=== PATIENT | female | born 1985 | race African-American/Black ===

== ENCOUNTER 2022-11-23 14:26 | Emergency (ER) | payer BC, MEDICAID ==
[2022-11-23] MEDS ORDERED: Sodium Chloride 0.9% 10 ML Syringe FLUSH PRN (14:29)
[2022-11-23] MEDS: Sodium Chloride 0.9% 1,000 ML IV ONE (14:55)
[2022-11-23] MEDS: Ondansetron 4 MG/2 ML SDV IVPUSH ONE (14:56)
[2022-11-23 14:58] LABS: ANION GAP 13.9 mmol/L (5-15); CHLORIDE,CL 106 mmol/L (98-107); SODIUM,NA 142 mmol/L (136-145)
[2022-11-23 15:06] LABS: ESTIMATED GFR 117 mL/min (>=60)
== END 2022-11-23 16:00 | disposition home or self-care (01) ==
LOC: KA.ED 14:26
DX: J11.2 Influenza due to unidentified influenza virus with gastrointestinal manifestations (principal)
CPT/HCPCS: 80053; 81001; 81025; 83690; 85025; 87804; 96361; 96374; 99283; 99284-25; J2405; J7030

== ENCOUNTER 2023-07-28 09:21 | Emergency (ER) | payer MEDICAID ==
[2023-07-28 09:58] LABS: BASOPHILS ABSOLUTE AUTO 0.02 10^3/uL (0.00-0.10); BASOPHILS PERCENT AUTO 0.3 % (0.0-1.0); EOSINOPHILS ABSOLUTE AUTO 0.13 10^3/uL (0.10-0.30); EOSINOPHILS PERCENT AUTO 2.1 % (1.0-3.0); HEMATOCRIT 29.9 % (37.0-47.0); HEMOGLOBIN 8.8 g/dL (12.0-16.0); IMMATURE GRAN ABSOLUTE AUTO 0.01 10^3/uL (0.00-0.50); IMMATURE GRAN PERCENT AUTO 0.2 % (0.0-5.0); LYMPHOCYTES ABSOLUTE AUTO 2.05 10^3/uL (1.00-4.00); LYMPHOCYTES PERCENT AUTO 33.7 % (20.0-40.0); MEAN CORPUSCULAR HEMOGLOBIN 22.6 pg (27.0-31.0); MEAN CORPUSCULAR HGB CONC 29.4 g/dL (32.0-36.0); MEAN CORPUSCULAR VOLUME 76.9 fL (82.0-92.0); MEAN PLATELET VOLUME 9.5 fL (7.4-10.4); MONOCYTES ABSOLUTE AUTO 0.49 10^3/uL (0.10-0.80); MONOCYTES PERCENT AUTO 8.1 % (2.0-8.0); NEUTROPHILS ABSOLUTE AUTO 3.38 10^3/uL (2.50-7.00); NEUTROPHILS PERCENT AUTO 55.6 % (50.0-70.0); PLATELET COUNT,PLT 392 10^3/uL (150-400); RED BLOOD CELL COUNT 3.89 10^6/uL (3.80-5.50); RED CELL DISTRIBUTION WIDTH 17.9 % (11.5-14.5); WHITE BLOOD CELL COUNT,WBC 6.08 10^3/uL (5.00-10.00)
[2023-07-28] MEDS: Aspirin 81 MG Tab.Chew PO ONE (10:03)
[2023-07-28] MEDS: Ondansetron 4 MG Tab.DIS PO ONE (10:14)
[2023-07-28 10:16] LABS: ALANINE AMINOTRANSFERASE,ALT 15 U/L (14-63); ALBUMIN 3.01 g/dL (3.40-5.00); ALKALINE PHOSPHATASE 99 U/L (46-116); ANION GAP 10.7 mmol/L (5-15); ASPARTATE AMNIOTRANSFERASE,AST 14 U/L (15-37); BILIRUBIN TOTAL 0.3 mg/dL (0.2-1.0); BLOOD UREA NITROGEN,BUN 10 mg/dL (7-18); CALCIUM 8.2 mg/dL (8.7-10.3); CARBON DIOXIDE,CO2 28.3 mmol/L (21.0-32.0); CHLORIDE,CL 106 mmol/L (98-107); CREATININE 0.65 mg/dL (0.51-1.17); GLUCOSE RANDOM 103 mg/dL (70-140); PROTEIN TOTAL,TP 7.2 g/dL (6.4-8.2); SODIUM,NA 141 mmol/L (136-145)
[2023-07-28 10:18] LABS: ESTIMATED GFR 116 mL/min (>=60)
[2023-07-28] MEDS: Alum Hydrox/Mag Hydrox/Simeth 30 ML, Lidocaine 2% 15 ML PO ONE ×2 (11:24)
== END 2023-07-28 11:28 | disposition home or self-care (01) ==
LOC: KA.ED 09:21
DX: J39.2 Other diseases of pharynx (principal); R11.0 Nausea
CPT/HCPCS: 36415; 71045; 80053; 81025; 84484; 85025; 99284; A9270-GY

== ENCOUNTER 2023-09-02 19:32 | Emergency (ER) | payer MEDICAID ==
[2023-09-02 20:51] LABS: INFLUENZA A NAA NEGATIVE (NEGATIVE); INFLUENZA B NAA NEGATIVE (NEGATIVE); RESPIRATORY SYNCYTIAL VIR NAA NEGATIVE (NEGATIVE)
[2023-09-02 20:52] LABS: CORONAVIRUS COVID-19 NAA NEGATIVE (NEGATIVE); STREP A BY PCR NOT DETECTED (NOT DETECT)
== END 2023-09-02 22:00 | disposition home or self-care (01) ==
LOC: KA.ED 19:32
DX: J04.0 Acute laryngitis (principal); Z20.822 Contact with and (suspected) exposure to COVID-19
CPT/HCPCS: 0241U; 87651-QW; 99283

== ENCOUNTER 2023-11-20 09:38 | Emergency (ER) | payer MEDICAID | END 2023-11-20 10:30 | disposition home or self-care (01) | LOC: KA.ED 09:38 | DX: O20.0 Threatened abortion (principal); Z3A.00 Weeks of gestation of pregnancy not specified | CPT/HCPCS: 99283; 99284 ==